=== PATIENT | male | born 1965 | race Caucasian/White ===

== ENCOUNTER 2017-06-28 16:12 | Inpatient (IN) | payer MEDICAID, OTHER ==
[~2017-06-28] VITALS: Ht 167.6 cm; Wt 73.0 kg
[2017-06-28] VITALS (9 sets, daily range): BP systolic 110–136; BP diastolic 76–92; PULSE 100–140; RESP 16–24; TEMP 98.4–99.3; O2SAT 94–99
[~2017-06-28 16:12] MED LIST: AFRI0.055; DIAZ10TA PO; FLUO5CRE TOP; LEVO750T33 PO; MOTR200T PO; RANI150 PO; STOO100T PO
[2017-06-28] MEDS ORDERED: SODIUM CHLOR 0.9% 1000 ML INJ 400 ML IV ONE (16:33)
[2017-06-28] MEDS ORDERED: SODIUM CHLOR 0.9% 1000 ML INJ 1,000 ML IV ONE ×2 (16:33)
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
[2017-06-28] MEDS ORDERED: HYDROmorphone HCL PF 2 MG/ML VIAL IV PUSH ONE ×2 (16:45→17:45)
[2017-06-28] MEDS ORDERED: ONDANSETRON HCL 4 MG/2 ML VIAL IV PUSH ONE (16:45)
[2017-06-28] MEDS ORDERED: DIATRIZOATE MEGLUM/DIATRIZOATE SOD 9 ML CUP ONE (17:15)
[2017-06-28 17:30] LABS: AUTOMATED NEUTROPHIL # 10.6 TH/MM3 (1.8-7.7); BASOPHIL # 0.1 TH/MM3 (0-0.2); BASOPHIL % 0.7 % (0.0-2.0); EOSINOPHIL % 0.2 % (0.0-4.0); HEMATOCRIT 38.8 % (39.0-51.0); HEMOGLOBIN 12.4 GM/DL (13.0-17.0); LYMPHOCYTE # 0.9 TH/MM3 (1.0-4.8); MEAN CELL VOLUME 72.7 FL (80.0-100.0); MEAN CORPUSCULAR HEMOGLOBIN 23.3 PG (27.0-34.0); MEAN PLATELET VOLUME 8.2 FL (7.0-11.0); MONO % 7.8 % (0.0-8.0); NEUT % 84.3 % (16.0-70.0); PLATELET COUNT 180 TH/MM3 (150-450); RED BLOOD COUNT 5.34 MIL/MM3 (4.50-5.90); RED CELL DISTRIBUTION WIDTH 19.8 % (11.6-17.2); WHITE BLOOD COUNT 12.6 TH/MM3 (4.0-11.0)
[2017-06-28 17:46] LABS: BILIRUBIN, URINE NEG (NEG); BLOOD, URINE SMALL (NEG); GLUCOSE,URINE 250 mg/dL (NEG); KETONE, URINE NEG (NEG); NITRITE,URINE NEG (NEG); URINE COLOR YELLOW (YELLW/STRAW); URINE LEUKOCYTE ESTERASE NEG (NEG)
[2017-06-28 17:47] LABS: CHLORIDE 95 MEQ/L (98-107); SODIUM (NA) 130 MEQ/L (136-145)
[2017-06-28 17:51] LABS: ALBUMIN 3.2 GM/DL (3.4-5.0); CALCIUM 8.9 MG/DL (8.5-10.1)
[2017-06-28 17:52] LABS: BLOOD UREA NITROGEN 28 MG/DL (7-18); GLUCOSE,RANDOM 106 MG/DL (74-106)
[2017-06-28 17:55] LABS: GLOMERULAR FILTRATION RATE 49 ML/MIN (>89)
[2017-06-28 17:56] LABS: TOTAL BILIRUBIN ADULT 0.6 MG/DL (0.2-1.0); TOTAL PROTEIN 7.8 GM/DL (6.4-8.2)
[2017-06-28 17:57] LABS: ALKALINE PHOSPHATASE 105 U/L (45-117)
[2017-06-28 18:00] LABS: LACTIC ACID SEPSIS PROTOCOL 2.5 mmol/L (0.4-2.0)
[2017-06-28 18:02] LABS: ALT (GPT) 1063 U/L (12-78); AST (GOT) 1405 U/L (15-37)
[2017-06-28 18:19] LABS: WBC, URINE 0-2 /hpf (0-5)
[2017-06-28 18:27] LABS: OVALOCYTES 1+ (NORMAL)
[2017-06-28] MEDS ORDERED: PIPERACIL-TAZO 3.375 GM PREMIX 50 ML IV ONE (18:45)
[2017-06-28] MEDS ORDERED: IOHEXOL 350 MG/ML 10 ML VIAL (for RAD DIAG) IVCONTRAST ONE (18:52)
--- NOTE | 2017-06-28 19:01 | RADRPT ---
EXAM DATE/TIME: 06/28/2017 18:39 [facility] COMPARISON: No previous studies available for comparison. INDICATIONS : Diffuse abdominal pain, distention and vomiting x 6 days. IV CONTRAST: 80 cc Omnipaque 350 (iohexol) IV ORAL CONTRAST: Prescribed oral contrast ingested. RADIATION DOSE: 9.95 CTDIvol (mGy) MEDICAL HISTORY : Carcinoma, squamous cell. SURGICAL HISTORY : Lymph node and skin cancer resection. ENCOUNTER: Initial ACUITY: 4 - 6 days PAIN SCALE: 10/10 LOCATION: Abdomen. TECHNIQUE: Volumetric scanning of the abdomen and pelvis was performed. Using automated exposure control and ad justment of the mA and/or kV according to patient size, radiation dose was kept as low as reasonably achievable to obtain optimal diagnostic quality images. DICOM format image data is available electro nically for review and comparison. FINDINGS: LOWER LUNGS: The visualized lower lungs are clear. LIVER: Liver is enlarged and demonstrates diffuse fatty infiltration. There is a tiny 7 mm low density lesio n within the left lobe near the falciform ligament consistent with possible cyst, tiny solid nodule o r focal fatty infiltration. There is no dilation of the biliary tree. No calcified gallstones. SPLEEN: Normal size without lesion. PANCREAS: Within normal limits. KIDNEYS: Normal in size and shape. There is no mass, stone or hydronephrosis. ADRENAL GLANDS: Within normal limits. VASCULAR: There is no aortic aneurysm. BOWEL/MESENTERY: The stomach, small bowel, and colon demonstrate no acute abnormality. There is no free intraperitone al air or fluid. ABDOMINAL WALL: Within normal limits. RETROPERITONEUM: There is no lymphadenopathy. There is a retroaortic left renal vein. BLADDER: No wall thickening or mass. REPRODUCTIVE: Within normal limits. INGUINAL: There is no lymphadenopathy. There is a right inguinal hernia containing only fat. MUSCULOSKELETAL: Degenerative changes and scoliosis of the lumbar spine are noted. CONCLUSION: 1. Enlarged fatty liver. 2. Right inguinal hernia containing only fat. 3. Tiny 7 mm low density lesion within the left lobe near the falciform ligament consistent with poss ible cyst, tiny solid nodule or focal fatty infiltration. 4. Degenerative changes and scoliosis of the lumbar spine Devin Smith MD on June 28, 2017 at 18:54 Board Certified Radiologist. This report was verified electronically.
[2017-06-28 19:25] LABS: INTERNATIONAL NORMALIZED RATIO 1.1 RATIO; PROTHROMBIN TIME - PATIENT 11.4 SEC (9.8-11.6)
[2017-06-28] MEDS ORDERED: SODIUM CHLORIDE 0.9% FLUSH 10 ML FLUSH IV FLUSH PRN (19:30)
[2017-06-28] MEDS ORDERED: SENNOSIDES 8.6 MG TAB PO PRN (19:30)
[2017-06-28] MEDS ORDERED: ONDANSETRON HCL 4 MG/2 ML VIAL IVP PRN (19:30)
[2017-06-28] MEDS ORDERED: MAGNESIUM HYDROXIDE SUSP 30 ML CUP PO PRN (19:30)
[2017-06-28] MEDS ORDERED: ACETAMINOPHEN 325 MG TAB PO PRN (19:30)
[2017-06-28] MEDS ORDERED: LACTULOSE SYRUP 20 GM/30 ML CUP PO PRN (19:30)
[2017-06-28] MEDS ORDERED: BISACODYL 10 MG SUPP RECTAL PRN (19:30)
[2017-06-28] MEDS ORDERED: ACETAMINOPHEN/HYDROcodone 325 MG/5 MG TAB PO PRN (19:30)
--- NOTE | 2017-06-28 19:33 | PD ---
Physical Exam Time Seen by Provider: 19:25 Narrative The patient was left to me by Dr. Naqvi for probable admission. He was simply waiting for a call from [facility] and had already determined the patient should be admitted. The patient has considerable pain. Data Data Last Documented VS Vital Signs Date Time Temp Pulse Resp B/P (MAP) Pulse Ox O2 Delivery O2 Flow Rate FiO2 06/28/17 18:32 103 18 110/76 (87) 99 Room Air 06/28/17 16:17 98.4 Orders Orders Sepsis Workup Initiated (06/28/17 ) Complete Blood Count With Diff (06/28/17 16:33) Comprehensive Metabolic Panel (06/28/17 16:33) Lactic Acid Sepsis Protocol (06/28/17 16:33) Lipase (06/28/17 16:33) Urinalysis - C+S If Indicated (06/28/17 16:33) Blood Culture (06/28/17 16:33) Ecg Monitoring (06/28/17 16:33) Iv Access Insert/Monitor (06/28/17 16:33) Oximetry (06/28/17 16:33) Oxygen Administration (06/28/17 16:33) Ondansetron Inj (Zofran Inj) (06/28/17 16:45) Ct Abd/Pel W Iv Contrast(Rout) (06/28/17 16:33) Sodium Chlor 0.9% 1000 Ml Inj (Ns 1000 M (06/28/17 16:33) Sodium Chlor 0.9% 1000 Ml Inj (Ns 1000 M (06/28/17 16:33) Sodium Chlor 0.9% 1000 Ml Inj (Ns 1000 M (06/28/17 16:33) Hydromorphone Pf Inj (Dilaudid Pf Inj) (06/28/17 16:45) Oral Contrast - Adult (06/28/17 16:45) Diatrizoate Liq ( Gastroazul Liq) (06/28/17 17:15) Hydromorphone Pf Inj (Dilaudid Pf Inj) (06/28/17 17:45) Piperacil-Tazo 3.375 Gm Premix (Zosyn 3. (06/28/17 18:45) Prothrombin Time / Inr (Pt) (06/28/17 18:45) Act Partial Throm Time (Ptt) (06/28/17 18:45) Iohexol 350 Inj (Omnipaque 350 Inj) (06/28/17 18:52) Labs Laboratory Tests Test 06/28/17 16:55 06/28/17 17:15 06/28/17 19:06 White Blood Count 12.6 TH/MM3 Red Blood Count 5.34 MIL/MM3 Hemoglobin 12.4 GM/DL Hematocrit 38.8 % Mean Corpuscular Volume 72.7 FL Mean Corpuscular Hemoglobin 23.3 PG Mean Corpuscular Hemoglobin Concent 32.0 % Red Cell Distribution Width 19.8 % Platelet Count 180 TH/MM3 Mean Platelet Volume 8.2 FL Neutrophils (%) (Auto) 84.3 % Lymphocytes (%) (Auto) 7.0 % Monocytes (%) (Auto) 7.8 % Eosinophils (%) (Auto) 0.2 % Basophils (%) (Auto) 0.7 % Neutrophils # (Auto) 10.6 TH/MM3 Lymphocytes # (Auto) 0.9 TH/MM3 Monocytes # (Auto) 1.0 TH/MM3 Eosinophils # (Auto) 0.0 TH/MM3 Basophils # (Auto) 0.1 TH/MM3 CBC Comment AUTO DIFF Differential Comment AUTO DIFF CONFIRMED Platelet Estimate NORMAL Platelet Morphology Comment NORMAL Ovalocytes 1+ Blood Urea Nitrogen 28 MG/DL Creatinine 1.50 MG/DL Random Glucose 106 MG/DL Total Protein 7.8 GM/DL Albumin 3.2 GM/DL Calcium Level 8.9 MG/DL Alkaline Phosphatase 105 U/L Aspartate Amino Transf (AST/SGOT) 1405 U/L Alanine Aminotransferase (ALT/SGPT) 1063 U/L Total Bilirubin 0.6 MG/DL Sodium Level 130 MEQ/L Potassium Level 3.6 MEQ/L Chloride Level 95 MEQ/L Carbon Dioxide Level 24.0 MEQ/L Anion Gap 11 MEQ/L Estimat Glomerular Filtration Rate 49 ML/MIN Lactic Acid Level 2.5 mmol/L Lipase 465 U/L Urine Color YELLOW Urine Turbidity CLEAR Urine pH 6.0 Urine Specific [place] 1.025 Urine Protein 100 mg/dL Urine Glucose (UA) 250 mg/dL Urine Ketones NEG mg/dL Urine Occult Blood SMALL Urine Nitrite NEG Urine Bilirubin NEG Urine Urobilinogen 0.2 MG/DL Urine Leukocyte Esterase NEG Urine WBC 0-2 /hpf Microscopic Urinalysis Comment CULT NOT INDICATED [facility] Medical Record Reviewed: Yes Supervised Visit with RITO: Yes Interpretation(s) The sodium is 130 in the BUN is 28 with a creatinine of 1.5. The liver enzymes are elevated markedly with an AST of 1405 and ALT of 1063 with a slight elevation of the lipase at 465. The albumin is 3.2. The rest of the complete metabolic profile is normal. The lactic acid is elevated at 2.5. The urinalysis shows 100 protein, 250 glucose, small occult blood but is otherwise normal and cultures not indicated. The CBC shows a white count of 12,600 with hemoglobin of 12.4 and hematocrit of 38.8 with 84% neutrophils but is otherwise unremarkable. The CT abdomen/pelvis with IV contrast shows an enlarged fatty liver, right inguinal hernia containing only fat, 7 mm low-density lesion within the left lobe near the falciform ligament consistent with possible cyst and tiny solid nodule or fatty infiltration noted in the liver, degenerative changes and scoliosis of the lumbar spine. Differential Diagnosis Pancreatitis, small bowel obstruction, metastatic squamous cell cancer, electrolyte disorder, dehydration, colitis Narrative Course The patient is in severe discomfort. He has markedly elevated liver enzymes as well as a slightly elevated lipase. His lactic acid is also slightly elevated. Impression: Intractable abdominal pain, pancreatitis, dehydration, renal insufficiency Physician Communication Physician Communication I discussed the patient with Dr. Vieira. Diagnosis Primary Impression: Pancreatitis Additional Impressions: Elevated liver enzymes Intractable abdominal pain Elevated lactic acid level Admitting Information Admitting Physician Requests: Admit Geovanny Ricketts MD June 28, 2017 19:33
[2017-06-28] MEDS ORDERED: MORPHINE SULFATE 4 MG/ML INJ IV PUSH PRN (20:00)
[2017-06-28] MEDS: SODIUM CHLOR 0.9% 1000 ML INJ 1,000 ML IV SCH (20:36)
[2017-06-28] MEDS: DOCUSATE SODIUM 50 MG/SENNA 8.6 MG TAB PO SCH (21:00)
[2017-06-28] MEDS: SODIUM CHLORIDE 0.9% FLUSH 10 ML FLUSH IV FLUSH SCH (21:16)
[2017-06-28] MEDS ORDERED: MORPHINE SULFATE 4 MG/ML INJ IV PUSH ONE (22:45)
[2017-06-28] MEDS: DIAZEPAM 10 MG TAB PO SCH (23:23)
[2017-06-29] MEDS: PIPERACIL-TAZO 3.375 GM PREMIX 50 ML IV SCH ×4 (01:58→20:27)
[2017-06-29] MEDS: SODIUM CHLOR 0.9% 1000 ML INJ 1,000 ML IV SCH ×3 (02:02→16:09)
[2017-06-29] MEDS: MORPHINE SULFATE 4 MG/ML INJ IV PUSH PRN ×2 (03:49→07:47)
[2017-06-29 04:00] VITALS: BP 137/92; PULSE 93; RESP 21; TEMP 98.6; O2SAT 98
[2017-06-29 06:51] LABS: AUTOMATED NEUTROPHIL # 5.5 TH/MM3 (1.8-7.7); BASOPHIL % 0.1 % (0.0-2.0); EOSINOPHIL # 0.1 TH/MM3 (0-0.4); EOSINOPHIL % 1.2 % (0.0-4.0); HEMATOCRIT 28.6 % (39.0-51.0); HEMOGLOBIN 9.7 GM/DL (13.0-17.0); LYMPH % 11.8 % (9.0-44.0); LYMPHOCYTE # 0.8 TH/MM3 (1.0-4.8); MEAN CELL VOLUME 73.5 FL (80.0-100.0); MEAN CORPUSCULAR HEMOGLOBIN 24.9 PG (27.0-34.0); MEAN CORPUSCULAR HGB CONC 33.9 % (32.0-36.0); MEAN PLATELET VOLUME 8.2 FL (7.0-11.0); MONO % 6.9 % (0.0-8.0); MONOCYTE # 0.5 TH/MM3 (0-0.9); PLATELET COUNT 136 TH/MM3 (150-450); RED BLOOD COUNT 3.89 MIL/MM3 (4.50-5.90); RED CELL DISTRIBUTION WIDTH 19.9 % (11.6-17.2); WHITE BLOOD COUNT 6.9 TH/MM3 (4.0-11.0)
[2017-06-29 07:16] LABS: ALBUMIN 2.4 GM/DL (3.4-5.0); ALKALINE PHOSPHATASE 105 U/L (45-117); BICARBONATE 26.8 MEQ/L (21.0-32.0); BLOOD UREA NITROGEN 15 MG/DL (7-18); CALCIUM 7.7 MG/DL (8.5-10.1); CHLORIDE 103 MEQ/L (98-107); GLOMERULAR FILTRATION RATE 71 ML/MIN (>89); GLUCOSE,RANDOM 92 MG/DL (74-106); SODIUM (NA) 136 MEQ/L (136-145); TOTAL BILIRUBIN ADULT 0.6 MG/DL (0.2-1.0)
[2017-06-29 07:47] LABS: ALT (GPT) 1153 U/L (12-78); AST (GOT) 1323 U/L (15-37)
[2017-06-29] MEDS: DIAZEPAM 10 MG TAB PO SCH ×2 (07:54→20:27)
[2017-06-29] MEDS: DOCUSATE SODIUM 50 MG/SENNA 8.6 MG TAB PO SCH ×2 (07:54→20:27)
[2017-06-29] MEDS: SODIUM CHLORIDE 0.9% FLUSH 10 ML FLUSH IV FLUSH SCH ×2 (07:55→19:50)
[2017-06-29 08:24] VITALS: BP 168/103; PULSE 102; RESP 19; TEMP 98.5; O2SAT 98
[2017-06-29] MEDS ORDERED: HYDROmorphone HCL PF 1 MG/ML VIAL IV PUSH PRN (09:30)
--- NOTE | 2017-06-29 09:36 | RADRPT ---
EXAM DATE/TIME: 06/29/2017 08:41 [facility] COMPARISON: CT ABDOMEN & PELVIS W CONTRAST, June 28, 2017, 18:39. INDICATIONS : Nausea and vomiting. MEDICAL HISTORY : Carcinoma, squamous cell. SURGICAL HISTORY : Lymph node and skin cancer resection. ENCOUNTER: Subsequent ACUITY: 1 day PAIN SCORE: 7/10 LOCATION: Right upper quadrant MEASUREMENTS: LIVER: 17.4 cm length COMMON DUCT: 3 mm RIGHT KIDNEY: 11.9 x 5.2 x 5.7 cm FINDINGS: LIVER: The liver demonstrates mild diffuse increased echogenicity. No focal abnormality is seen. The small h ypodensity seen on the CT examination is not seen on the ultrasound examination. COMMON DUCT: No intraluminal mass or stone visualized. GALLBLADDER: Contains no stones, demonstrates no wall thickening or pericholecystic fluid. PANCREAS: The pancreas is obscured by bowel gas. RIGHT KIDNEY: No evidence of hydronephrosis, stone, or mass. CONCLUSION: Mild hepatic steatosis. Pan Hutchinson MD on June 29, 2017 at 9:31 Board Certified Radiologist. This report was verified electronically.
--- NOTE | 2017-06-29 09:45 | HHI.HP ---
HPI Service [facility] Primary Care Physician Unknown Admission Diagnosis Pancreatitis, intractable abdominal pain, elevated liver enzymes, el Diagnoses: (1) Elevated lactic acid level Diagnosis: Principal (2) Elevated liver enzymes Diagnosis: Principal (3) Pancreatitis Diagnosis: Principal (4) Intractable abdominal pain Diagnosis: Principal Travel History International Travel<30 Days: No Contact w/Intl Traveler <30 Da: No Traveled to Known Affected Are: No History of Present Illness Mr. Foley is a 51-year-old male. He is admitted secondary to 6 days of abdominal pain, nausea, vomiting, and some diarrhea. This all started after he ate sushi with scallops about 6 days ago. He says immediately after eating the soup she had a burning/swelling reaction in his mouth and throat. The next morning he tried this again and had the same reaction so he threw it away. Subsequently he has developed his abdominal symptoms. 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 He is not on chemotherapy for this at this point. He has had radiation therapy. His only other baseline medical problems hypertension. She does not recall any previous reaction like this. Etiology could represent anaphylaxis versus hepatitis a versus foodborne bacterial pathogen. No fevers reported. No bloody diarrhea. No other complaints at this time. 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 Zantac (Ranitidine HCl) 150 Mg Tab 150 Mg PO BID 30 Days Reported Afrin (Oxymetazoline HCl) 0.05 % Spr 1 [place] NA Q12 Levofloxacin 750 Mg Tab 750 Mg PO DAILY Diazepam 10 mg (Diazepam) 10 Mg Tab 1 Tab PO BID Ibuprofen 200 Mg Tab 200 Mg PO Q4H PRN Stool Softener (Miscellaneous Medication) 100 Mg Cap Mg PO PRN Allergies: Coded Allergies: vancomycin (Verified Allergy, Intermediate, HIVES, 06/28/17) PT STATES HE NEEDS BENADRYL PRIOR TO ADMINISTRATION. Active Ordered Medications Administered Medications Medications (Trade) Dose Ordered Sig/Cyndi Route PRN Reason Start Time Stop Time Status Last Admin Dose Admin Sodium Chloride 1,000 ml @ 100 mls/hr Q10H IV 06/28/17 19:23 06/29/17 02:02 Sodium Chloride (NS Flush) 2 ml BID IV FLUSH 06/28/17 21:00 06/28/17 21:16 Ondansetron HCl (Zofran Inj) 4 mg Q6H PRN IVP NAUSEA OR VOMITING 06/28/17 19:30 06/28/17 20:03 Senna/Docusate Sodium (Farhana-Colace) 1 tab BID PO 06/28/17 21:00 06/29/17 07:54 Piperacillin Sod/ Tazobactam Sod 50 ml @ 100 mls/hr Q6H IV 06/29/17 02:00 06/29/17 07:54 Morphine Sulfate (Morphine Inj) 4 mg Q3H PRN IV PUSH Pain 6-10 06/28/17 23:00 06/29/17 07:47 Diazepam (Valium) 10 mg BID PO 06/28/17 23:15 06/29/17 07:54 Family History None reported Social History Occasional alcohol No smoking No illicit drug abuse Physical Exam Vital Signs Vital Signs Date Time Temp Pulse Resp B/P (MAP) Pulse Ox O2 Delivery O2 Flow Rate FiO2 06/29/17 08:24 98.5 102 19 168/103 (124) 98 06/29/17 04:00 98.6 93 21 137/92 (107) 98 06/28/17 22:00 103 06/28/17 21:46 06/28/17 21:00 102 16 134/83 (100) 98 Room Air 06/28/17 20:05 102 16 132/88 (103) 97 Room Air 06/28/17 20:00 99.3 110 24 130/84 (99) 98 06/28/17 19:10 100 16 128/80 (96) 97 Room Air 06/28/17 18:32 103 18 110/76 (87) 99 Room Air 06/28/17 17:30 110 18 136/84 (101) 99 Room Air 06/28/17 17:12 96 Room Air 06/28/17 17:12 96 Room Air 06/28/17 16:17 98.4 140 20 130/92 (105) 94 Physical Exam GENERAL: NAD, A&Ox3 HEAD: Normocephalic. NECK: Supple, trachea midline. No lymphadenopathy. EYES: No scleral icterus. No injection or drainage. CARDIOVASCULAR: Regular rate and rhythm without murmurs, gallops, or rubs. RESPIRATORY: Breath sounds equal bilaterally. No accessory muscle use. GASTROINTESTINAL: Abdomen soft, non-tender, nondistended. Hyperactive bowel sounds. MUSCULOSKELETAL: No cyanosis, or edema. SKIN: Warm and dry. Scar tissue at right face and neck NEURO: No focal neurological deficitis. Laboratory Laboratory Tests Test 06/28/17 16:55 06/28/17 17:15 06/28/17 19:06 06/28/17 20:43 White Blood Count 12.6 Red Blood Count 5.34 Hemoglobin 12.4 Hematocrit 38.8 Mean Corpuscular Volume 72.7 Mean Corpuscular Hemoglobin 23.3 Mean Corpuscular Hemoglobin Concent 32.0 Red Cell Distribution Width 19.8 Platelet Count 180 Mean Platelet Volume 8.2 Neutrophils (%) (Auto) 84.3 Lymphocytes (%) (Auto) 7.0 Monocytes (%) (Auto) 7.8 Eosinophils (%) (Auto) 0.2 Basophils (%) (Auto) 0.7 Neutrophils # (Auto) 10.6 Lymphocytes # (Auto) 0.9 Monocytes # (Auto) 1.0 Eosinophils # (Auto) 0.0 Basophils # (Auto) 0.1 CBC Comment AUTO DIFF Differential Comment AUTO DIFF CONFIRMED Platelet Estimate NORMAL Platelet Morphology Comment NORMAL Ovalocytes 1+ Blood Urea Nitrogen 28 Creatinine 1.50 Random Glucose 106 Total Protein 7.8 Albumin 3.2 Calcium Level 8.9 Alkaline Phosphatase 105 Aspartate Amino Transf (AST/SGOT) 1405 Alanine Aminotransferase (ALT/SGPT) 1063 Total Bilirubin 0.6 Sodium Level 130 Potassium Level 3.6 Chloride Level 95 Carbon Dioxide Level 24.0 Anion Gap 11 Estimat Glomerular Filtration Rate 49 Lactic Acid Level 2.5 1.1 Lipase 465 Urine Color YELLOW Urine Turbidity CLEAR Urine pH 6.0 Urine Specific [place] 1.025 Urine Protein 100 Urine Glucose (UA) 250 Urine Ketones NEG Urine Occult Blood SMALL Urine Nitrite NEG Urine Bilirubin NEG Urine Urobilinogen 0.2 Urine Leukocyte Esterase NEG Urine WBC 0-2 Microscopic Urinalysis Comment CULT NOT INDICATED Prothrombin Time 11.4 Prothromb Time International Ratio 1.1 Activated Partial Thromboplast Time 28.0 Test 06/29/17 05:55 White Blood Count 6.9 Red Blood Count 3.89 Hemoglobin 9.7 Hematocrit 28.6 Mean Corpuscular Volume 73.5 Mean Corpuscular Hemoglobin 24.9 Mean Corpuscular Hemoglobin Concent 33.9 Red Cell Distribution Width 19.9 Platelet Count 136 Mean Platelet Volume 8.2 Neutrophils (%) (Auto) 80.0 Lymphocytes (%) (Auto) 11.8 Monocytes (%) (Auto) 6.9 Eosinophils (%) (Auto) 1.2 Basophils (%) (Auto) 0.1 Neutrophils # (Auto) 5.5 Lymphocytes # (Auto) 0.8 Monocytes # (Auto) 0.5 Eosinophils # (Auto) 0.1 Basophils # (Auto) 0.0 CBC Comment AUTO DIFF Differential Comment AUTO DIFF CONFIRMED Platelet Estimate LOW Platelet Morphology Comment NORMAL Blood Urea Nitrogen 15 Creatinine 1.10 Random Glucose 92 Total Protein 6.0 Albumin 2.4 Calcium Level 7.7 Alkaline Phosphatase 105 Aspartate Amino Transf (AST/SGOT) 1323 Alanine Aminotransferase (ALT/SGPT) 1153 Total Bilirubin 0.6 Sodium Level 136 Potassium Level 3.8 Chloride Level 103 Carbon Dioxide Level 26.8 Anion Gap 6 Estimat Glomerular Filtration Rate 71 Date/Time Source Procedure Growth Status 06/28/17 17:05 Blood Peripheral Aerobic Blood Culture Pending Received 06/28/17 17:05 Blood Peripheral Anaerobic Blood Culture Pending Received Result Diagram: 06/29/17 0555 06/29/17 0555 Imaging Last Impressions Abdomen/Pelvis CT 06/28/17 1633 Signed Impressions: Service Date/Time: Wednesday, June 28, 2017 18:39 - CONCLUSION: 1. Enlarged fatty liver. 2. Right inguinal hernia containing only fat. 3. Tiny 7 mm low density lesion within the left lobe near the falciform ligament consistent with possible cyst, tiny solid nodule or focal fatty infiltration. 4. Degenerative changes and scoliosis of the lumbar spine MD Shahida Sung VTE Risk Assessment Caprin VTE Risk Assessment: No/Low Risk (score <= 1) Caprini Risk Assessment Model Point Value = 1 Point Value = 2 Point Value = 3 Point Value = 5 Age 41-60 Minor surgery BMI > 25 kg/m2 Swollen legs Varicose veins or History of unexplained or recurrent spontaneous Oral contraceptives or hormone replacement Sepsis (< 1 month) Serious lung disease, including pneumonia (< 1 month) Abnormal pulmonary function Acute myocardial infarction Congestive heart failure (< 1 month) History of inflammatory bowel disease Medical patient at bed rest Age 61-74 Arthroscopic surgery Major open surgery (> 45 min) Laparoscopic surgery (> 45 min) Malignancy Confined to bed (> 72 hours) Immobilizing plaster cast Central venous access Age >= 75 History of VTE Family history of VTE Factor V Leiden Prothrombin [id number] Lupus anticoagulant Anticardiolipin antibodies Elevated serum homocysteine Heparin-induced thrombocytopenia Other congenital or acquired thrombophilia Stroke (< 1 month) Elective arthroplasty Hip, pelvis, or leg fracture Acute spinal cord injury (< 1 month) Prophylaxis Regimen Total Risk Factor Score Risk Level Prophylaxis Regimen 0-1 Low Early ambulation 2 Moderate Order ONE of the following: *Sequential Compression Device (SCD) *Heparin 5000 units SQ BID 3-4 Higher Order ONE of the following medications: *Heparin 5000 units SQ TID *Enoxaparin/Lovenox 40 mg SQ daily (WT < 150 kg, CrCl > 30 mL/min) *Enoxaparin/Lovenox 30 mg SQ daily (WT < 150 kg, CrCl > 10-29 mL/min) *Enoxaparin/Lovenox 30 mg SQ BID (WT < 150 kg, CrCl > 30 mL/min) AND/OR *Sequential Compression Device (SCD) 5 or more Highest Order ONE of the following medications: *Heparin 5000 units SQ TID (Preferred with Epidurals) *Enoxaparin/Lovenox 40 mg SQ daily (WT < 150 kg, CrCl > 30 mL/min) *Enoxaparin/Lovenox 30 mg SQ daily (WT < 150 kg, CrCl > 10-29 mL/min) *Enoxaparin/Lovenox 30 mg SQ BID (WT < 150 kg, CrCl > 30 mL/min) AND *Sequential Compression Device (SCD) Assessment and Plan Problem List: (1) Intractable abdominal pain ICD Code: R10.9 - Unspecified abdominal pain Status: Acute (2) Elevated lactic acid level ICD Code: R79.89 - Other specified abnormal findings of blood chemistry Status: Acute (3) Elevated liver enzymes ICD Code: R74.8 - Abnormal levels of other serum enzymes Status: Acute (4) Pancreatitis ICD Code: K85.90 - Acute pancreatitis without necrosis or infection, unspecified Status: Acute Assessment and Plan 51-year-old male admitted secondary to abdominal pain and hyperemesis related to suspected foodborne illness Abdominal pain Hyperemesis Provide steroids to cover for potential anaphylaxis Hepatitis panel ordered to screen for hepatitis A Stool studies ordered Continue Zosyn Flagyl started to cover for GI pathogens including Giardia IV Hydration Await resolution of symptoms PRN Pain treatments Hypertension Controlled Right face and neck squamous cell carcinoma Follows an outpatient DVT prophylaxis SCDs Patient is ambulatory Physician Certification 2 Midnight Certification Type: Admission for Inpatient Services Order for Inpatient Services The services are ordered in accordance with Medicare regulations or non- Medicare payer requirements, as applicable. In the case of services not specified as inpatient-only, they are appropriately provided as inpatient services in accordance with the 2-midnight benchmark. Estimated LOS (days): 2 days is the estimated time the patient will need to remain in the hospital, assuming treatment plan goals are met and no additional complications. Post-Hospital Plan: Home Mich Figueroa MD June 29, 2017 09:45
[2017-06-29] MEDS ORDERED: methylPREDNISolone SOD SUCC 40 MG/1 ML VIAL IV PUSH ONE (10:00)
[2017-06-29] MEDS: metroNIDAZOLE 500 MG TAB PO SCH ×3 (10:36→22:46)
[2017-06-29] MEDS: HYDROmorphone HCL PF 2 MG/ML VIAL IV PUSH PRN ×4 (10:37→22:46)
[2017-06-29 12:50] VITALS: BP 145/103; PULSE 89; RESP 17; TEMP 97.7; O2SAT 97
[2017-06-29] MEDS: methylPREDNISolone SOD SUCC 40 MG/1 ML VIAL IV PUSH SCH ×2 (14:36→20:28)
[2017-06-29 16:56] VITALS: BP 153/114; PULSE 85; RESP 19; TEMP 98; O2SAT 99
[2017-06-29 20:00] VITALS: BP 151/92; PULSE 98; RESP 16; TEMP 98; O2SAT 98
[2017-06-29 23:27] VITALS: BP 157/90; PULSE 90; RESP 16; TEMP 97.1; O2SAT 98
[2017-06-30] MEDS: PIPERACIL-TAZO 3.375 GM PREMIX 50 ML IV SCH ×3 (02:50→15:02)
[2017-06-30] MEDS: HYDROmorphone HCL PF 2 MG/ML VIAL IV PUSH PRN ×2 (02:50→08:38)
[2017-06-30 04:00] VITALS: BP 150/72; PULSE 90; RESP 15; TEMP 98.2
[2017-06-30] MEDS: metroNIDAZOLE 500 MG TAB PO SCH ×3 (05:52→18:37)
[2017-06-30] MEDS: methylPREDNISolone SOD SUCC 40 MG/1 ML VIAL IV PUSH SCH (05:52)
[2017-06-30 06:51] LABS: AUTOMATED NEUTROPHIL # 9.8 TH/MM3 (1.8-7.7); BASOPHIL % 0.1 % (0.0-2.0); EOSINOPHIL % 0.1 % (0.0-4.0); HEMATOCRIT 31.1 % (39.0-51.0); HEMOGLOBIN 9.7 GM/DL (13.0-17.0); LYMPH % 3.8 % (9.0-44.0); LYMPHOCYTE # 0.4 TH/MM3 (1.0-4.8); MEAN CELL VOLUME 73.8 FL (80.0-100.0); MEAN CORPUSCULAR HEMOGLOBIN 22.9 PG (27.0-34.0); MEAN CORPUSCULAR HGB CONC 31.1 % (32.0-36.0); MEAN PLATELET VOLUME 7.6 FL (7.0-11.0); MONO % 5.1 % (0.0-8.0); MONOCYTE # 0.5 TH/MM3 (0-0.9); NEUT % 90.9 % (16.0-70.0); PLATELET COUNT 163 TH/MM3 (150-450); RED BLOOD COUNT 4.21 MIL/MM3 (4.50-5.90); WHITE BLOOD COUNT 10.7 TH/MM3 (4.0-11.0)
[2017-06-30 06:57] LABS: CHLORIDE 108 MEQ/L (98-107); SODIUM (NA) 140 MEQ/L (136-145)
[2017-06-30 07:17] LABS: ALBUMIN 2.5 GM/DL (3.4-5.0); ALKALINE PHOSPHATASE 178 U/L (45-117); ALT (GPT) 845 U/L (12-78); AST (GOT) 414 U/L (15-37); BICARBONATE 26.2 MEQ/L (21.0-32.0); BLOOD UREA NITROGEN 13 MG/DL (7-18); CALCIUM 8.8 MG/DL (8.5-10.1); CREATININE 0.84 MG/DL (0.60-1.30); GLOMERULAR FILTRATION RATE 96 ML/MIN (>89); GLUCOSE,RANDOM 127 MG/DL (74-106); TOTAL BILIRUBIN ADULT 0.4 MG/DL (0.2-1.0); TOTAL PROTEIN 6.5 GM/DL (6.4-8.2)
[2017-06-30] MEDS: DIAZEPAM 10 MG TAB PO SCH (08:38)
[2017-06-30] MEDS: SODIUM CHLORIDE 0.9% FLUSH 10 ML FLUSH IV FLUSH SCH (08:39)
[2017-06-30] MEDS: DOCUSATE SODIUM 50 MG/SENNA 8.6 MG TAB PO SCH (08:39)
[2017-06-30 08:46] VITALS: BP 175/117; PULSE 93; RESP 20; TEMP 97.5; O2SAT 99
[2017-06-30] MEDS ORDERED: ACETAMINOPHEN/HYDROcodone 325 MG/5 MG TAB PO PRN (11:15)
[2017-06-30] MEDS ORDERED: FOLIC ACID 1 MG TAB PO SCH (11:15)
[2017-06-30] MEDS ORDERED: LORazepam 1 MG TAB PO PRN (11:15)
[2017-06-30] MEDS ORDERED: ENALAPRILAT 1.25 MG/ML VIAL IV PUSH PRN (11:15)
[2017-06-30] MEDS ORDERED: ACETAMINOPHEN/HYDROcodone 325 MG/7.5 MG TAB PO PRN (11:15)
[2017-06-30] MEDS ORDERED: LORazepam 2 MG/ML VIAL IV PUSH PRN ×4 (11:15)
[2017-06-30] MEDS ORDERED: THIAMINE HCL 100 MG TAB PO SCH ×2 (11:15→12:02)
[2017-06-30] MEDS ORDERED: cloNIDine HCL 0.1 MG TAB PO PRN (11:15)
[2017-06-30] MEDS ORDERED: LORazepam 2 MG TAB PO PRN (11:15)
[2017-06-30] MEDS ORDERED: FLUMAZENIL 0.5 MG/5 ML VIAL IV PUSH PRN (11:15)
[2017-06-30] MEDS: SODIUM CHLOR 0.9% 1000 ML INJ 1,000 ML IV SCH (11:23)
[2017-06-30] MEDS ORDERED: METR-1 PO (15:09)
--- NOTE | 2017-06-30 15:09 | HHI.DCPOC ---
Discharge Care Plan Diagnosis: (1) Intractable abdominal pain (2) Elevated liver enzymes (3) Pancreatitis Goals to Promote Your Health * To prevent worsening of your condition and complications * To maintain your health at the optimal level Directions to Meet Your Goals Take your medications as prescribed Follow your dietary instruction Follow activity as directed Keep your appointments as scheduled Take your immunizations and boosters as scheduled If your symptoms worsen call your PCP, if no PCP go to Urgent Care Center or Emergency Room Smoking is Dangerous to Your Health. Avoid second hand smoke Call the 24-hour hour crisis hotline for domestic abuse at Tarun Ricketts June 30, 2017 15:09
--- NOTE | 2017-06-30 15:13 | HHI.DS ---
Discharge Summary Admission Date June 28, 2017 at 19:42 Discharge Date: June 30, 2017 Admitting Diagnosis Pancreatitis, intractable abdominal pain, elevated liver enzymes, el (1) Intractable abdominal pain ICD Code: R10.9 - Unspecified abdominal pain Status: Acute (2) Elevated lactic acid level ICD Code: R79.89 - Other specified abnormal findings of blood chemistry Status: Acute (3) Elevated liver enzymes ICD Code: R74.8 - Abnormal levels of other serum enzymes Status: Acute (4) Pancreatitis ICD Code: K85.90 - Acute pancreatitis without necrosis or infection, unspecified Status: Acute Procedures None Brief History - From Admission Mr. Foley is a 51-year-old male. He is admitted secondary to 6 days of abdominal pain, nausea, vomiting, and some diarrhea. This all started after he ate sushi with scallops about 6 days ago. He says immediately after eating the soup she had a burning/swelling reaction in his mouth and throat. The next morning he tried this again and had the same reaction so he threw it away. Subsequently he has developed his abdominal symptoms. 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 He is not on chemotherapy for this at this point. He has had radiation therapy. His only other baseline medical problems hypertension. She does not recall any previous reaction like this. Etiology could represent anaphylaxis versus hepatitis a versus foodborne bacterial pathogen. No fevers reported. No bloody diarrhea. No other complaints at this time. CBC/BMP: 06/30/17 0605 06/30/17 0605 Significant Findings Laboratory Tests Test 06/28/17 16:55 06/28/17 17:15 06/28/17 19:06 06/28/17 20:43 White Blood Count 12.6 TH/MM3 (4.0-11.0) Hemoglobin 12.4 GM/DL (13.0-17.0) Hematocrit 38.8 % (39.0-51.0) Mean Corpuscular Volume 72.7 FL (80.0-100.0) Mean Corpuscular Hemoglobin 23.3 PG (27.0-34.0) Red Cell Distribution Width 19.8 % (11.6-17.2) Neutrophils (%) (Auto) 84.3 % (16.0-70.0) Lymphocytes (%) (Auto) 7.0 % (9.0-44.0) Neutrophils # (Auto) 10.6 TH/MM3 (1.8-7.7) Lymphocytes # (Auto) 0.9 TH/MM3 (1.0-4.8) Monocytes # (Auto) 1.0 TH/MM3 (0-0.9) Ovalocytes 1+ (NORMAL) Blood Urea Nitrogen 28 MG/DL (7-18) Creatinine 1.50 MG/DL (0.60-1.30) Albumin 3.2 GM/DL (3.4-5.0) Aspartate Amino Transf (AST/SGOT) 1405 U/L (15-37) Alanine Aminotransferase (ALT/SGPT) 1063 U/L (12-78) Sodium Level 130 MEQ/L (136-145) Chloride Level 95 MEQ/L (98-107) Estimat Glomerular Filtration Rate 49 ML/MIN (>89) Lactic Acid Level 2.5 mmol/L (0.4-2.0) Lipase 465 U/L (73-393) Urine Protein 100 mg/dL (NEG-TRACE) Urine Glucose (UA) 250 mg/dL (NEG) Urine Occult Blood SMALL (NEG) Test 06/29/17 05:55 06/30/17 06:05 Red Blood Count 3.89 MIL/MM3 (4.50-5.90) 4.21 MIL/MM3 (4.50-5.90) Hemoglobin 9.7 GM/DL (13.0-17.0) 9.7 GM/DL (13.0-17.0) Hematocrit 28.6 % (39.0-51.0) 31.1 % (39.0-51.0) Mean Corpuscular Volume 73.5 FL (80.0-100.0) 73.8 FL (80.0-100.0) Mean Corpuscular Hemoglobin 24.9 PG (27.0-34.0) 22.9 PG (27.0-34.0) Red Cell Distribution Width 19.9 % (11.6-17.2) 20.0 % (11.6-17.2) Platelet Count 136 TH/MM3 (150-450) Neutrophils (%) (Auto) 80.0 % (16.0-70.0) 90.9 % (16.0-70.0) Lymphocytes # (Auto) 0.8 TH/MM3 (1.0-4.8) 0.4 TH/MM3 (1.0-4.8) Platelet Estimate LOW (NORMAL) Erythrocyte Sedimentation Rate 47 mm/hr (0-20) Total Protein 6.0 GM/DL (6.4-8.2) Albumin 2.4 GM/DL (3.4-5.0) 2.5 GM/DL (3.4-5.0) Calcium Level 7.7 MG/DL (8.5-10.1) Aspartate Amino Transf (AST/SGOT) 1323 U/L (15-37) 414 U/L (15-37) Alanine Aminotransferase (ALT/SGPT) 1153 U/L (12-78) 845 U/L (12-78) Estimat Glomerular Filtration Rate 71 ML/MIN (>89) C-Reactive Protein 6.52 MG/DL (0.00-0.30) Mean Corpuscular Hemoglobin Concent 31.1 % (32.0-36.0) Lymphocytes (%) (Auto) 3.8 % (9.0-44.0) Neutrophils # (Auto) 9.8 TH/MM3 (1.8-7.7) Random Glucose 127 MG/DL (74-106) Alkaline Phosphatase 178 U/L (45-117) Chloride Level 108 MEQ/L (98-107) Imaging Last Impressions Gall Bladder Ultrasound 06/29/17 0000 Signed Impressions: Service Date/Time: Thursday, June 29, 2017 08:41 - CONCLUSION: Mild hepatic steatosis. Pan Hutchinson MD Abdomen/Pelvis CT 06/28/17 1633 Signed Impressions: Service Date/Time: Wednesday, June 28, 2017 18:39 - CONCLUSION: 1. Enlarged fatty liver. 2. Right inguinal hernia containing only fat. 3. Tiny 7 mm low density lesion within the left lobe near the falciform ligament consistent with possible cyst, tiny solid nodule or focal fatty infiltration. 4. Degenerative changes and scoliosis of the lumbar spine Devin Smith MD PE at Discharge GENERAL: Well-developed, well-nourished, in no acute distress. alert and orientated HEENT: Head is normocephalic without any lesions or masses noted. Facial features are symmetric. Eyes: Extraocular muscles are intact. Conjunctivae were clear. NECK: Supple without any masses. Trachea midline no deviation. No JVD, CARDIAC: Regular rhythm, regular rate. S1/S2 are heard. No murmurs gallops or rubs. LUNGS: Clear to auscultation bilaterally. No wheeze, rhonchi or rales. No use of accessory muscles on inspiration or expiration. ABDOMEN: Soft, nontender. Nondistended. Bowel sounds heard in all 4 quadrants. No organomegaly or masses. Negative rebound, negative guarding EXTREMITIES: No edema, pulses are equal bilaterally. No cyanosis or clubbing NEUROLOGY: Mood and affect appear appropriate. Cranial nerves II through XII grossly intact. Moving all extremities, speech is clear Hospital Course 51-year-old male with known history of chronic pain, hypertension, right facial and neck squamous cell carcinoma who presented to the hospital because a 6 day history of abdominal pain, nausea, vomiting and diarrhea. The patient indicates that he did eat some sushi with scallops approximately 6 days ago when his symptoms started. Upon eating them he immediately developed a burning swelling sensation in his mouth. Because of the continuous nausea, vomiting he came to emergency department for evaluation. Upon initial presentation and it does appear that patient had elevated lipase, elevated liver enzymes. Patient does openly admit that he drinks at least 4/16 ounce beers daily. Patient did have workup which did not indicate any acute hepatitis, abdominal CT showed enlarged fatty liver. No signs of any pancreatitis or hepatitis. Patient's lipase level and liver enzymes were trended which did improve on a daily basis. Upon evaluating the patient today he did indicate that he still having some diarrheal illness, as well as some abdominal distention. I notified him that we will do further workup for evaluation of that at this time. However later on the day he requested that I reevaluate him because he is feeling much better. Patient wants to go home. He does have follow-up with his oncologist in 2 days. He has not been able to produce any stool sample during the day today. Apparently his diarrhea illness has resolved. Patient does suffer from chronic pain. He is on fentanyl and other pain medication that he did not divulge to me. He is not requiring any IV pain medication since 8:00 this morning. However he is still using [place] 7.5 mg top of his fentanyl patch. Patient states that he has all of his pain medication at home that he gets prescribed by his pain management physician. Patient does not do weight in the hospital for further testing in relation to his diarrheal illness. Which apparently has resolved since he has not had a bowel movement since admission. Patient clinically improved this time. He is very eager to go home. He does have appropriate outpatient follow-up. We will plan discharge accordingly. Pt Condition on Discharge: Stable Discharge Disposition: Discharge Home Discharge Time: > 30 minutes Discharge Instructions DIET: Follow Instructions for: As Tolerated, No Restrictions Activities you can perform: Regular-No Restrictions Follow up Referrals: PCP Follow-up - 2-3 Days New Medications: Metronidazole (Flagyl) 500 Mg Tab 500 MG PO Q6HR for Infection for 10 Days, TAB Continued Medications: Diazepam 10 mg (Diazepam 10 mg) 10 Mg Tab 1 TAB PO BID, TAB Fluorouracil (Topical) (Fluorouracil) 5 % Cre 5 % TOP BID, #1 1 Refill apply to affected areas on face & arms twice daily until ulcer/crater seen, then apply to new area as directed. Ibuprofen (Ibuprofen) 200 Mg Tab 200 MG PO Q4H PRN for PAIN, TAB Oxymetazoline Hcl (Afrin) 0.05 % Spr 1 [place] NA Q12, SPR Ranitidine Hcl (Zantac) 150 Mg Tab 150 MG PO BID for 30 Days, 3 Refills Discontinued Medications: Levofloxacin (Levofloxacin) 750 Mg Tab 750 MG PO DAILY, TAB Miscellaneous (Stool Softener) 100 Mg Cap MG PO PRN, Tarun Tavera June 30, 2017 15:13
[2017-06-30 16:34] VITALS: BP 150/96; PULSE 72; RESP 20; TEMP 96.4; O2SAT 98
== END 2017-06-30 18:41 | disposition home or self-care (01) | DRG 439 ==
LOC: PHED 16:12 → PHEDA 19:42 → PH3B 21:36
PROVIDERS: ADMIT Hospitalist; ATTEND Hospitalist
DX: K85.90 Acute pancreatitis without necrosis or infection, unspecified (principal); C77.0 Secondary and unspecified malignant neoplasm of lymph nodes of head, face and neck; K76.0 Fatty (change of) liver, not elsewhere classified; I10 Essential (primary) hypertension; R19.7 Diarrhea, unspecified; R11.2 Nausea with vomiting, unspecified; M19.041 Primary osteoarthritis, right hand; K40.90 Unilateral inguinal hernia, without obstruction or gangrene, not specified as recurrent; T62.8X1A Toxic effect of other specified noxious substances eaten as food, accidental (unintentional), initial encounter; M19.042 Primary osteoarthritis, left hand; F32.9 Major depressive disorder, single episode, unspecified; F41.9 Anxiety disorder, unspecified; Z85.828 Personal history of other malignant neoplasm of skin; Z88.1 Allergy status to other antibiotic agents; Z92.3 Personal history of irradiation
CPT/HCPCS: 74177; 76705; 80053; 80074; 81001; 83605; 83690; 85025; 85610; 85652; 85730; 86140; 87040; 96361; 96374; 96375; 96376; J1170; J2270; J2405; J2543; J2920; J7030; Q9963; Q9967